=== PATIENT | female | born 1960 | race Two or more races ===

== ENCOUNTER 2016-09-09 09:09 | Day surgery (SDC) | payer OTHER ==
[2016-09-07 12:32] VITALS: BMI 26.9
[2016-09-09] MEDS ORDERED: PROPOFOL 20 ML ONE (10:51)
[2016-09-09] MEDS ORDERED: MIDAZOLAM HCL 2 MG/2 ML SINGLE DOSE VIAL ONE (10:52)
[2016-09-09] MEDS ORDERED: SUCCINYLCHOLINE CHLORIDE 200 MG/10 ML VIAL ONE (10:53)
[2016-09-09] MEDS ORDERED: LIDOCAINE HCL 2% JELLY (5 ML/TUBE) ONE (10:57)
[2016-09-09] MEDS ORDERED: BUPIVACAINE HCL/EPINEPHRINE/PF 30 ML VIAL IJ ONE (11:00)
--- NOTE | 2016-09-09 11:07 | HP ---
History & Physical Update - History History: No Change - Physical Physical: No Change - Assessment Assessment: No Change - Plan Plan: No Change (H&P from 09/02/2016)
--- NOTE | 2016-09-09 11:10 | OP ---
Operative Note - Note: Operative Date: 09/09/16 Pre-Operative Diagnosis: Left Dequervains Disease Operation: Left first dorsal extensor compartment release Anesthesia: Local Operative Report Dictated: Yes
--- NOTE | 2016-09-09 11:11 | DS ---
Physical Examination Vital Signs: Vital Signs Temperature 98.8 F 09/09/16 09:33 Pulse Rate 78 09/09/16 09:33 Respiratory Rate 18 09/09/16 09:33 Blood Pressure 134/92 09/09/16 09:33 O2 Sat by Pulse Oximetry (%) 99 09/09/16 09:33 Discharge Summary Reason For Visit: LEFT DEQUERVAIN SYNDROME Condition: Good - Instructions Diet, Activity, Other Instructions: Leave the dressing on for 5 days may use the hand as needed Elevate the hand when at rest. Call for return appointment in 10-14 day Disposition: HOME - Home Medications Comprehensive Discharge Medication List: Ambulatory Orders Ca/D3/Mag#11/Zinc/Glass Fitter/Abner/Bor [Caltrate 600+D Plus Tablet] 1 each PO DAILY 10/19 Cholecalciferol (Vitamin D3) [Vitamin D3] 2,000 unit PO DAILY 09/07/16 [place]-3/Dha/Epa/Fish Oil [Fish Oil 500 mg Softgel] 1 each PO DAILY 09/07/16
[2016-09-09] MEDS ORDERED: BUPIVACAINE 0.25% /EPI 1:200,000 10 ML VIAL INF ONE (11:30)
[2016-09-09] MEDS ORDERED: oxyCODONE HCL 5 MG TABLET PO PRN (11:43)
[2016-09-09] MEDS ORDERED: LACTATED RINGERS SOLUTION 1,000 ML IV SCH (11:45)
[2016-09-09] MEDS ORDERED: ONDANSETRON 4 MG/2 ML VIAL IVPUSH PRN (12:46)
[2016-09-09 13:30] VITALS: BP 112/74; PULSE 74; TEMP 98.8
== END 2016-09-09 13:30 | disposition home or self-care (01) ==
LOC: FASU 09:09
PROVIDERS: ATTEND Orthopaedic Surgery
PROC: 0LQ60ZZ Repair Left Lower Arm and Wrist Tendon, Open Approach (ICD-10-PCS; 2016-09-09)
PROC: 0L860ZZ Division of Left Lower Arm and Wrist Tendon, Open Approach (ICD-10-PCS; principal; 2016-09-09 11:25)
DX: M65.4 Radial styloid tenosynovitis [de Quervain] (principal); M66.232 Spontaneous rupture of extensor tendons, left forearm